=== PATIENT | male | born 1965 | race Caucasian/White ===

== ENCOUNTER 2017-01-21 15:29 | Emergency (ER) | payer SELFPAY ==
[~2017-01-21] VITALS: Ht 177.8 cm; Wt 81.8 kg
[~2017-01-21 15:29] MED LIST: BUPR75TA10 PO; Fenofibrate PO; LISI-567 PO; METF500T4 PO
[2017-01-21 15:33] VITALS: BP 127/89; PULSE 80; RESP 16; O2SAT 98
--- NOTE | 2017-01-21 16:09 | ED.REPORT ---
HPI-General Illness Date of Service Jan 21, 2017 ED Provider: Lenny is a 51-year-old male with a history of pancreatitis, diabetes, hypertension presenting with left-sided abdominal pain. Patient reports a month 's long history of left-sided abdominal pain that was severely worsened when he woke up this morning. Reports pain into his left flank and testicle. Associated with nausea and vomiting. Denies dysuria, hematuria, melena, hematochezia, hematemesis, fever, malaise. Initially seen at urgent care where labs are performed. These are considered to be reassuring however while at urgent care his pain significantly worsens and he is referred to the emergency department. Nursing Notes Stated Complaint: POSSIBLE KIDNEY STONES/ABD PAIN/SENT FROM Chief Complaint: Male Abdominal Pain Nursing Notes Reviewed: Yes Allergies: Coded Allergies: No Known Drug Allergies (Verified Allergy, Unknown, 05/24/15) Scheduled ([Fenofibrate]) 160 MG TABLET 160 MG PO DAILY Bupropion (Bupropion) 75 Mg Tablet 75 MG PO BID Lisinopril (Lisinopril) 20 Mg Tablet 10 MG PO DAILY Metformin (Metformin) 500 Mg Tablet 1,000 MG PO BID Ondansetron ODT (Ondansetron ODT) 8 Mg Tab.rapdis 8 MG PO TID Tamsulosin (Flomax) 0.4 Mg Capsule 0.4 MG PO DAILY Scheduled PRN Hydrocodone-Acetaminophen 5-325 mg (Hydrocodone-Acetaminophen 5-325 mg) 1 Each Tablet 1-2 TABLET PO QID PRN PRN For Pain General Time Seen by MD: 16:08 Chief Complaint Abdominal pain Past Medical History Smoking History Former Smoker Review of Systems Negative unless stated otherwise in history of present illness Physical Exam General: Well appearing, well developed, well nourished, no acute distress. Head: Atraumatic, normocephalic. Eyes: No scleral icterus or injection. No discharge. Vision grossly intact. ENT: Voice clear, hearing grossly intact. Respiratory: Regular rate and rhythm. Breath sounds present, clear to auscultation and equal bilaterally. No respiratory distress. No increased work of breathing, speaks in complete sentences. Cardiovascular: Regular rate and rhythm, without murmur, gallop or rub. No pedal edema. Gastrointestinal: Abdomen flat and non-tender without guarding or rebound. Bowel sounds normoactive. Skin: Warm and dry. Back: Normal to inspection, negative CVA tenderness. Neurological: Grossly nonfocal. Psychological: Alert and oriented. Speech appropriate, linear and logical. Behavior appropriate. Vital Signs Vital Signs Date Time Temp Pulse Resp B/P Pulse Ox O2 Delivery O2 Flow Rate FiO2 01/21/17 19:58 36.7 65 16 95/53 99 Room Air 01/21/17 19:50 65 16 95/53 99 Room Air 01/21/17 19:35 69 16 95/57 99 Room Air 01/21/17 15:33 36.7 80 16 127/89 98 Room Air Normal Interpretation & Diagnostics Lab Results Interpretation Test 01/21/17 18:55 Urine Color Dark yellow (YELLOW) Urine Appearance Hazy (CLEAR,HAZY) Urine pH 5.5 (5.0-8.0) Urine Specific B[place]y 1.030 (1.003-1.035) Urine Protein 30mg/dL (NEG,TRACE) Urine Glucose (UA) Negativemg/dL (NEGATIVE) Urine Ketones 80mg/dL (NEGATIVE) Urine Occult Blood Large (NEGATIVE) Urine Nitrite Negative (NEGATIVE) Urine Bilirubin Moderate (NEGATIVE) Urine Ictotest Positive (Negative) Urine Urobilinogen Normalmg/dL (NORMAL) Urine Leukocyte Esterase Negative (NEGATIVE) Urine RBC >50/hpf (0-2) Urine WBC 0-5/hpf (0-5) Urine Epithelial Cells Occasional/hpf (NONE-MOD) Urine Crystals None seen (NONE SEEN) Urine Bacteria Few/hpf (NONE-FEW) Urine Hyaline Casts None/lpf (NONE) Urine Granular Casts None seen (NONE SEEN) Urine Waxy Casts None seen (NONE SEEN) Urine Red Blood Cell Casts None seen (NONE SEEN) Urine White Blood Cell Casts None seen (NONE SEEN) Urine Mucus Present (None Seen) Urine Trichomonas None seen (NONE SEEN) Urine Yeast None (NONE SEEN) Urinalysis Comment None Urine Culture Reflexed Not indicated CBC Interpretation CBC normal (performed at urgent care) BMP / CMP Interpretation BMP/CMP normal except (potassium low at 3.2, chloride low at 92, total CO2 low at 14, and calcium high at 10.3. Not thought to be clinically significant.) Re-Eval/Medical Decision Med Decision/Clinical Course Lenny is a 51-year-old male with a history of pancreatitis presenting with left flank pain which is been present for several months but suddenly worsened today. Patient seen at urgent care, where reassuring labs are drawn. However his pain worsens and is referred to the emergency department. In the Emergency department he is treated with Toradol, Dilaudid and normal saline, has significantly improved. CT scan confirms left kidney stone, urinalysis reassuring against infection. I discussed these findings with Dr. watters and we agreed he is stable and safe to be discharged to home. We are reassured regarding diverticulitis, nephrolithiasis, appendicitis, pancreatitis. Advised regarding urology follow-up, provided emergency return precautions. Provided tamsulosin, [place], ondansetron. Patient verbalizes understanding of and consented to the plan. Patient is noted to be somewhat hypotensive after serial measurements at discharge. I discussed this with Dr. watters. He is not tachycardic, afebrile. He has no leukocytosis. His blood pressure appears to be stable. We have little concern for sepsis or hemorrhage. We believe he is stable and safe to be discharged to home, which the patient agrees to. Discharge & Departure Primary Impression: Kidney stone on left side Additional Impression: Renal colic Disposition: Home Discharge Condition All VS Reviewed: Yes Condition: Stable Patient Instructions: Kidney Stones (ED) Additional Instructions: Evaluation in the emergency department for abdominal pain includes history, physical examination, review of records from urgent care, urinalysis and CT scan , all of which suggest that you have a kidney stone on you left side. There is no indication of a kidney infection or pancreatitis. I believe you are stable and safe to be discharged. This will require follow-up with urology, and I will provide you with a referral. Please contact them tomorrow to arrange to be seen. I will send her home with a urine strainer. Please use this every time you urinate to potentially catch your kidney stone for analysis. The pain is best treated with 800 mg of ibuprofen (Advil, Motrin) every 6 hours , or 1000 mg of acetaminophen (Tylenol) every 6 hours. These drugs can be taken at the same time for more severe pain. I have written a prescription for a small amount of hydrocodone/acetaminophen 5/ 325 mg which can be SUBSTITUTED for the Tylenol to treat more severe pain. Do not take them together, and do not drink alcohol or operate a vehicle within 4 hours of taking this medication. Return the emergency department for any new or worsening symptoms including increasing pain, inability to urinate, fever. Referrals: Ivone Rivero MD EDSupervising Provider for APC: Juan Watters MD Attending Statement Attending attestation: I saw this patient in conjunction with Uziel Dozier PA-C. I was present for bloom portions of the history taking and physical examination. I agree with the workup, evaluation, treatment and disposition. Juan Watters MD copies to: Ivone Rivero MD; Wallace Bernardo DO [place], Beck O MD Jan 21, 2017 16:09 Uziel Dozier PA-C Jan 21, 2017 18:15
[2017-01-21] MEDS ORDERED: Ondansetron 2 mg/mL 2 mL Inj IVPUSH ONE (16:10)
[2017-01-21] MEDS ORDERED: HYDROmorphone 0.5 mg/0.5 mL iSecure Syringe IVPUSH PRN (16:10)
--- NOTE | 2017-01-21 17:27 | DRSVH ---
PROCEDURE: CT KUB (PNL-7475) INDICATIONS: abd pain, nausea TECHNIQUE: Noncontrast 5 mm thick sections acquired from the diaphragms to the symphysis. 5 mm thick coronal an d sagittal reformats were then performed. For radiation dose reduction, the following was used: aut omated exposure control, adjustment of mA and/or kV according to patient size. COMPARISON: [facility], CT, ABD/PELVIS W/CON (PN), 02/18/2015, 10:53. FINDINGS: Image quality: Excellent. Lung bases: Lung bases are clear. Heart size is normal. Urinary system: 4 mm obstructing proximal left ureteral calculus with left-sided hydronephrosis and u reterectasis. No further renal or ureteral calculi. Low-density right renal mass most consistent with a cyst. Bladder wall thickness is normal; no calcified bladder stones. Other solid organs: Liver and spleen are normal in size. Gallbladder is mildly enlarged and contain s high density material. Findings likely are present milk of calcium or small cholelithiasis.. Pancr eas is normal in contours. No adrenal nodules. Peritoneum and bowel: Unenhanced bowel loops demonstrate normal wall thickness and caliber. No free fluid or air. Nodes and vessels: No retroperitoneal or mesenteric adenopathy by size criteria. Aorta and inferior vena cava are normal in caliber. Abdominal wall: Small periumbilical hernia with increased density in the associated fat.. Pelvis: No free pelvic fluid. No inguinal hernias or adenopathy. Bones: No suspicious bony lesions. No vertebral body compression fractures. IMPRESSION: 1. Proximal left ureteral obstructing 4 mm calculus. 2. Prominent gallbladder containing increased density most consistent with milk of calcium or small c holelithiasis. CT findings do not support acute cholecystitis. 3. Small fat containing perineal hernia with increased density in the fat. Correlate with clinical ex am at this site. Dictated by: Loki John M.D. on 01/21/2017 at 17:15 Approved by: Loki John M.D. on 01/21/2017 at 17:20
[2017-01-21 19:16] LABS: COLOR,URINE DARK YELLOW (YELLOW)
[2017-01-21 19:19] LABS: APPEARANCE,URINE HAZY (CLEAR,HAZY); OCCULT BLOOD,URINE LARGE (NEGATIVE); PH,URINE 5.5 (5.0-8.0); UROBILINOGEN,URINE NORMAL (NORMAL)
[2017-01-21 19:28] LABS: ICTOTEST,URINE POSITIVE (Negative)
[2017-01-21 19:35] VITALS: BP 95/57; PULSE 69; RESP 16; O2SAT 99
[2017-01-21 19:50] VITALS: BP 95/53; PULSE 65; RESP 16; O2SAT 99
[2017-01-21] MEDS ORDERED: ONDA8TAB10 PO (19:51)
[2017-01-21] MEDS ORDERED: HYDR-4003 PO (19:51)
[2017-01-21] MEDS ORDERED: TAMS0.4C98 PO (19:53)
[2017-01-21 19:58] VITALS: BP 95/53; PULSE 65; RESP 16; O2SAT 99
== END 2017-01-21 19:58 | disposition home or self-care (01) ==
LOC: SED 15:29
DX: N20.0 Calculus of kidney (principal); I10 Essential (primary) hypertension; E11.9 Type 2 diabetes mellitus without complications; Z87.19 Personal history of other diseases of the digestive system; Z87.891 Personal history of nicotine dependence; Z79.84 Long term (current) use of oral hypoglycemic drugs
CPT/HCPCS: 74176; 81000; 96361; 96374; 96375; 99285; J1170; J1885; J2405

== ENCOUNTER 2017-04-25 10:04 | Observation (INO) | payer OTHER ==
[~2017-04-25] VITALS: Ht 177.8 cm; Wt 88.4 kg
[2017-04-25] VITALS (9 sets, daily range): BP systolic 103–167; BP diastolic 78–107; PULSE 68–86; RESP 14–21; O2SAT 94–98
[~2017-04-25 10:04] MED LIST changes: +HYDR-4003 PO; +ONDA8TAB10 PO; +TAMS0.4C98 PO
--- NOTE | 2017-04-25 10:26 | ED.REPORT ---
HPI-Extremity Problem Upper Date of Service Apr 25, 2017 ED Provider: Carlyle Franco DO A 51 year old male with a history of diabetes mellitus, pancreatitis and kidney stones presents to the ED with stabbing right-shoulder pain that initially began a few weeks ago but became increasingly worse this morning. The patient was evaluated at Urgent Care this morning for right arm pain that radiated to his chest and he was sent to the ED for further evaluation following a concerning presentation. He reports associated nocturnal diaphoresis and nausea. Patient has visited several times over the past few weeks and has been previously diagnosed with musculoskeletal strain and admits to a recent fall onto his left side 2 weeks ago. The pain in his arm is not exacerbated by arm movement or touch but is exacerbated by laying down. Ice and stretching has helped relieve his pain. Patient denies any recent fever, chills, abdominal pain or vomiting. Nursing Notes Stated Complaint: MUSCULOSKELETAL PAIN/SENT BY Chief Complaint: Extremity Trauma Nursing Notes Reviewed: Yes Allergies: Coded Allergies: No Known Drug Allergies (Verified Allergy, Unknown, 04/25/17) Scheduled Metformin (Glucophage) 1,000 Mg Tablet 1,000 MG PO BID General Time Seen by MD: 10:19 Chief Complaint Shoulder injury right Hx Obtained From: Patient Arrived By: Walk-in Onset Occurred: More than a week ago... Symptom Duration: Since onset Location: : Shoulder right Quality: Painful, Stabbing Severity: Current: Moderate Severity: Maximum: Moderate Associated with: Denies: Fever, Nausea, Vomiting Pertinent Negative: Pt denies other symptoms Relieved by: Extension, Ice Recent Healthcare: No recent hospitalization, Recent doctor visit Similar Sx Previous: Yes Past Medical History Past Medical History Diabetes mellitus Pancreatitis Kidney stones Past Surgical History None reported. Smoking History Former Smoker Social History Other Social History: , Local resident Ambulatory Status Independent Review of Systems Constitutional: Denies: Chills, Fever Musculoskeletal: Reports: Extremity pain (right arm pain), Joint pain (right arm pain) Skin: Reports Diaphoresis (nocturnal) Complete sys rev & neg: except as marked. Cardiovascular: Reports: Chest pain GI: Reports: Nausea, Denies: Abdominal pain, Vomiting Physical Exam Initial Vital Signs Vital Signs (First) Date Time Temp Pulse Resp B/P Pulse Ox O2 Delivery O2 Flow Rate FiO2 04/25/17 10:07 36.6 77 16 157/99 98 Room Air Initial VS: Reviewed Head / Eyes: Atraumatic, Normocephalic, PERRL Neck: Supple, Non-tender, Full range of motion Skin: Warm, Dry, No cyanosis Neurologic: Alert, Oriented, Nonfocal Psychiatric: Mood/affect normal, Behavior normal, Normal thought content General/Constitutional: Awake, Alert, No acute distress Respiratory / Chest: Atraumatic, Breath sounds NL, Breath sounds = bilat, No respiratory distress, No chest tenderness CHEST: Pain is not reproducible Cardiovascular: Heart rate NL, Regular rhythm, Heart sounds NL Hypertensive Upper Extremity / MS: Atraumatic, Neurologic intact, Vascular intact Pain is not reproducible Lower Extremity / Pelvis / MS: Atraumatic, Inspection NL, Neurologic intact, Vascular intact Interpretation & Diagnostics Lab Results Interpretation Result Diagram: 04/25/17 1045 04/25/17 1045 Test 04/25/17 10:45 White Blood Count 6.9th/mm3 (3.8-10.1) Red Blood Count 3.17mil/mm3 (4.40-5.80) Hemoglobin 9.8g/dL (13.8-17.2) Hematocrit 26.5% (41.0-50.0) Mean Corpuscular Volume 83.6fL (81-100) Mean Corpuscular Hemoglobin 30.9pg (27.0-35.0) Mean Corpuscular Hemoglobin Concent 37.0% (32.0-37.0) Red Cell Distribution Width 14.6% (12.3-15.4) Platelet Count 303bil/L (150-400) Neutrophils (%) (Auto) 63.7% (40-74) Lymphocytes (%) (Auto) 22.5% (14-46) Monocytes (%) (Auto) 10.2% (4-12) Eosinophils (%) (Auto) 2.0% (0-5) Basophils (%) (Auto) 0.4% (0-3) Sodium Level 131mEq/L (134-144) Potassium Level 4.2mEq/L (3.5-5.2) Chloride Level 94mEq/L (97-108) Carbon Dioxide Level 16mmol/L (18-29) Blood Urea Nitrogen 13mg/dL (6-24) Creatinine 0.37mg/dL (0.76-1.27) Estimat Glomerular Filtration Rate 263mL/min (>59) Glucose Level 299mg/dL (60-99) Calcium Level 7.6mg/dL (8.5-10.1) Magnesium Level 1.7mg/dL (1.6-2.6) Total Bilirubin 0.2mg/dL (0.0-1.2) Aspartate Amino Transf (AST/SGOT) 10U/L (0-50) Alanine Aminotransferase (ALT/SGPT) 8U/L (0-44) Alkaline Phosphatase 58U/L (25-150) Troponin T 0.012ug/L (0.0-0.011) Total Protein 5.2g/dL (6.4-8.4) Albumin 3.5g/dL (3.4-5.0) Ketones Small (Negative) Lab Results Interpretation: BLOOD GAS pH - 7.38 ECG Interpretation ECG Interpretation: Sinus rhythm Rate 78 bpm Left atrial enlargement Time: 10:20 Interpreted by: ED physician CT Chest Interpretation IMPRESSION: 1. Arterial vasculature of the chest and abdomen is radiographically normal. Please note, the pulmonary arteries are not sufficiently opacified for evaluation. 2. Diffuse heterogeneous thyroid. No discrete nodules. 3. Benign left adrenal adenoma. 4. No radiographic evidence of pancreatitis. Please correlate with lipase and amylase levels. Dictated by: Loki John M.D. on 04/25/2017 at 13:36 Study type: Chest CT w contrast Interpretation / Wet Read by: Interpret - Radiologist Re-Eval/Medical Decision Med Decision/Clinical Course Concern for unstable angina with an indeterminate troponin. Symptoms are not completely typical of acute coronary syndrome however given the patient's risk factors he will be admitted. Re-Evaluation/Progress #1: Time of Eval: 12:42 Re-Evaluation/Progress Note: Chest pain is still present. He is informed of his current results and the plan to admit. Re-Evaluation/Progress #2: Time of Eval: 14:05 Patient Status: Pain improved Re-Evaluation/Progress Note: Nitro treatment relieved the pt's pain. Consultation : Referral / Consult Name: AntonioAiyana DO Consulted With: Hospitalist Call Returned at: 13:16 Morgue Technician: Will see patient, Agrees with eval, Agrees with plan, Accepts admit Note: Discussed patient condition. Agress with treatment plan. Counseled Regarding: Diagnosis, Lab results, Need for admission Discharge & Departure Impression: Primary Impression: Chest pain Chest pain type: unspecified Qualified Code: R07.9 - Chest pain, unspecified Disposition: ADMITTED TO HOSPITAL Discharge Condition All VS Reviewed: Yes Condition: Improved Referrals: NOPCP (PCP) Genevieve Springer MD Scribe Attestation Portions of this note were transcribed by Rosa Cordero. I, Dr. Slava Fox, personally performed the history, physical exam and medical decision-making; I reviewed and confirmed the accuracy of the information in the transcribed note. Signed by: Rosa Cordero, 04/25/17. Carlyle Franco DO Apr 25, 2017 10:26 ROSA CORDERO Apr 25, 2017 10:29
[2017-04-25] MEDS ORDERED: Ondansetron 2 mg/mL 2 mL Inj IVPUSH ONE (10:35)
[2017-04-25 11:51] LABS: BASOPHILS % (AUTO) 0.4 % (0-3); MONOCYTES % (AUTO) 10.2 % (4-12); Mean Corpuscular Hemoglobin 30.9 pg (27.0-35.0); Mean Corpuscular Volume 83.6 fL (81-100); NEUTROPHILS % (AUTO) 63.7 % (40-74); Platelet Count 303 bil/L (150-400)
[2017-04-25 12:30] LABS: Magnesium 1.7 mg/dL (1.6-2.6); TROPONIN T 0.012 ug/L (0.0-0.011)
[2017-04-25] MEDS ORDERED: Nitroglycerin 2% 1 Gm Ointment TOPICAL SCH (13:00)
--- NOTE | 2017-04-25 13:17 | ABG ---
DateTimeAnalyzed 13:10:00 -_ pH ____7.381 - 7.320 7.420 pCO2 ___31.4__ -mmHg 41.0 51.0 pO2 ___56.6__ -mmHg 24.0 40.0 HCO3- ___18.2__ -mmol/L ABE ___-6.1__ -mmol/L FIO2 ___21.0__ -% Drawn By jh - Date/Time Notified____ 13:17:00 -_ Oxygen Device 1 _ROOM AIR - Notified By jh - Notified Whom ___okelly - B 759 -mmHg tO2 ____4.8__ -Vol% Alexey test N/A -
--- NOTE | 2017-04-25 13:46 | DRSVH ---
PROCEDURE: CT ANG CHEST/ABD W/WO CONTRAST (PNL-7501) INDICATIONS: r chest and back pain, hypertensive TECHNIQUE: Precontrast 5 mm thick sections acquired from the lung apices to the iliac crests. After the adminis tration of intravenous contrast, 3 mm thick sections again acquired from the lung apices to the iliac crests. 3-dimensional maximum intensity projection (MIP) oblique sagittal and coronal reformats wer e then acquired, and/or 3-dimensional volume rendering reformats. For radiation dose reduction, the following was used: automated exposure control. COMPARISON: [facility], CT, CT KUB, 03/12/2017, 11:02. FINDINGS: Image quality: Excellent. AORTA: The thoracic and abdominal aorta is normal. Proximal great vessels as well as 2 right sided and a sin gle left-sided renal arteries, the celiac axis, superior and inferior mesenteric arteries are patent. CHEST: Lungs and pleura: No acute airspace opacities. No pleural effusions or pneumothorax. Central and p eripheral airways are patent and normal in caliber. Mediastinum: Heart size is normal. No pericardial effusion. No mediastinal or hilar adenopathy by size criteria. Central pulmonary arteries are normal in size. Esophagus is normal in caliber. No h iatal hernias. Bones and chest wall: No axillary adenopathy by size criteria. Thyroid gland is diffusely heterogen eous with no distinct mass. No suspicious bony lesions. No vertebral body compression fractures. ABDOMEN: Vasculature: Celiac trunk and mesenteric arteries are patent. Renal arteries are also patent. Solid organs: Liver and spleen are normal in size. Gallbladder is present. Biliary system is non d ilated. Pancreas enhances normally. There is a 2.5 cm left adrenal nodule which demonstrates low den sity on precontrast images consistent with a benign adrenal adenoma. Benign right renal cyst. Both k idneys are normal in size and enhancement, without hydronephrosis. Peritoneum and bowel: No free fluid or air. Bowel loops are normal in caliber and wall thickness. Nodes and vessels: No retroperitoneal or mesenteric adenopathy by size criteria. Inferior vena cava is normal in morphology. Bones: No suspicious bony lesions. No vertebral body compression fractures. Miscellaneous: No ventral hernias. IMPRESSION: 1. Arterial vasculature of the chest and abdomen is radiographically normal. Please note, the pulmona ry arteries are not sufficiently opacified for evaluation. 2. Diffuse heterogeneous thyroid. No discrete nodules. 3. Benign left adrenal adenoma. 4. No radiographic evidence of pancreatitis. Please correlate with lipase and amylase levels. Dictated by: Loki John M.D. on 04/25/2017 at 13:36 Approved by: Loki John M.D. on 04/25/2017 at 13:44
[2017-04-25] MEDS ORDERED: METF1000 PO (13:55)
[2017-04-25] MEDS ORDERED: Alum-Mag Hydrox-Simeth 30 mL Suspension PO PRN ×2 (14:10→17:00)
[2017-04-25] MEDS ORDERED: Ondansetron 2 mg/mL 2 mL Inj IVPUSH PRN ×2 (14:10→17:00)
--- NOTE | 2017-04-25 16:22 | NUR ---
Admit Pt admitted to [facility] room 3012, report received from Dacia Denny RN. Pt arrived via stretcher, was able to ambulate to the bed, steady gait observed. Pt alert and oriented x 4, denies chest pain or discomfort, VSS, able to make needs known, admit and med req completed. Pt oriented to room, bathroom, call light, TV, and visiting hours. Will continue to monitor.
[2017-04-25] MEDS ORDERED: Polyethylene Glycol (PEG) 17 Gm Powder PO PRN (17:00)
--- NOTE | 2017-04-25 17:14 | PCM.HPMED ---
Subjective Date of Service Apr 25, 2017 Primary Provider: Admitting Physician: Aiyana Antonio DO Primary Care Physician: [facility] Attending Physician: Aiyana Antonio DO Chief Complaint: Chest pain History of Present Illness: Patient is a 51-year-old male with past medical history of hypertension, hypertriglyceridemia, hyperlipidemia diabetes, pancreatitis, depression who comes in with the complaint of chest pain. The patient states that he has been having this chest pain for the last few weeks however it is currently increased significantly in pain. The patient states that the pain starts near his right shoulder blade and wraps up into his shoulder and into his chest the patient was given sublingual nitroglycerin and this seemed to help his pain significantly. The patient states that he fell 1 month ago and hurt his left shoulder and has had chronic pain from that and this seems to be at its baseline. The patient states that 3 years ago he had chest pain as well and had a cardiac cath which was negative. The patient had an abdominal and chest CT as the patient does have diabetes and there was concern as this is atypical presentation of chest pain. No signs of aortic dissection were noted the patient does have a benign left adrenal adenoma but there were no signs of pancreatitis noted on the CT scan. Patient currently denies any shortness of breath, states that his depression is currently stable. The patient complains of some left-sided abdominal pain but states that this is all been happening over the last 3 days however currently he has no left-sided abdominal pain. The patient's glucose on admission was 299, mildly elevated troponin at 0.012, hyponatremia with sodium at 131. Patient is being admitted under observation for chest pain rule out ND. Allergies Coded Allergies: No Known Drug Allergies (Verified Allergy, Unknown, 04/25/17) H Social History Hx Alcohol Use: No Hx Substance Use: No Smoking Status: Former Smoker Exam Vital Signs Vital Sign - Last Date Time Temp Pulse Resp B/P Pulse Ox O2 Delivery O2 Flow Rate FiO2 04/25/17 15:41 36.6 86 16 160/81 96 Nasal Cannula 2.00 Lab and Diagnostics Result Diagram: 04/25/17 1045 04/25/17 1045 Assessment & Plan Home medications: Bupropion 75 mg by mouth twice a day Metformin 1000mg by mouth daily however the patient is supposed be taking thousand milligrams twice a day Lisinopril 20 mg daily Patient is no longer taking gemfibrozil Allergies: No known drug allergies PMHx: Hypertension Diabetes type II Depression Pancreatitis SHx: Umbilical hernia repair Left ganglion cyst removal, ganglion cyst removal from the neck and right hip FHx: Significant history of hyperlipidemia and hypertriglyceridemia in patient's brother, grandfather, father, sister, daughter Patient's brother was diagnosed with Alzheimer's SocHx: Occupation: Currently retired Tobacco history: Quit smoking in 1998 patient smoked for 33 years 2 packs per day Alcohol use: Patient has not had a drink in the last 7-8 years patient denies any previous alcohol addiction Drug use: Patient denies ROS: A complete review of systems was performed or attempted to be performed. Please see HPI for pertinent positives, all other systems are negatives. Physical Exam: GEN: Patient was awake, alert, responding appropriately to questions HEENT: Pupils equal round and reactive to light, extraocular eye muscles intact , Neck soft supple, trachea midline, nomocephalic/atraumatic CV: +S1/S2, regular rate and rhythm, no murmur auscultated Respiratory: CTAB, no wheezes, rales, rhonchi GI: +bowel sounds x4, soft, compressible, mild tenderness to palpation in the area of the patient's umbilical hernia EXT: no clubbing, cyanosis, edema Neuro: Cranial nerves II-XII grossly intact Psych: mood and affect were appropriate Assessment and Plan Patient is a 51-year-old male with past medical history of hypertension, hypertriglyceridemia, hyperlipidemia diabetes, pancreatitis, depression who comes in with the complaint of chest pain. Chest pain rule out ND, present on admission, active -Mildly elevated troponin and 0.012 continue to trend troponins 3 -Follow up lipid panel -Follow up triglycerides -Exercise stress test in the morning - Echo ordered -Nothing by mouth after midnight -Nitroglycerin when necessary chest pain -Morphine when necessary pain -Follow up labs in the morning Hypertension, present on admission, active -Continue lisinopril 20 mg daily -Continue to monitor Hyponatremia, present on admission, active -1 L normal saline bolus -Continue to monitor Diabetes, present on admission, active -Glucose on admission 299 -Follow up hemoglobin A1c -Continue metformin thousand milligrams twice a day as prescribed -Insulin sliding scale low-dose -Follow up labs in the morning Hyperlipidemia and hypertriglyceridemia -Follow up labs in the morning Code Status: Full code Diet: Heart healthy DVT prophylaxis: SCDs and ambulation Disposition: Due to the nature of the patient's current diagnosis anticipated stay is less than 2 midnight Time spent Greater than 45 minutes Aiyana Antonio DO Apr 25, 2017 17:13
--- NOTE | 2017-04-25 18:03 | PCM.ADCARE ---
Advance Care Planning Note Plan: Date: 04/25/2017 Diagnosis: Chest pain Diabetes Hypertension Hyperlipidemia Hypertriglyceridemia Depression Purpose of encounter: Goals of care Parties in attendance: The patient, his , Dr. Antonio Decisional capacity: Good Plan: The patient and his are aware of the current diagnosis and would like to continue to be full code. The patient understands that this means for chest compressions, intubation, pressors, and all measures involved with CPR. CODE STATUS: Full code Time spent with advanced care planning: Greater than 16 minutes Aiyana Antonio DO Apr 25, 2017 18:03
[2017-04-26] MEDS ORDERED: Glucose 40% Oral Gel 15 Gm Tube PO PRN (01:15)
[2017-04-26 02:27] VITALS: PULSE 68
--- NOTE | 2017-04-26 04:13 | NUR ---
Right shoulder pain Patient reported right shoulder pain at 6-7/10, Morphine effective. Applied heat, increased comfort. Patient reports pain is less than when admitted. Patient is NPO after midnight, aware of planned stress test and echocardiogram. Using call light appropriately, alert and oriented, cooperative with care.
[2017-04-26 04:27] VITALS: BP 135/89; PULSE 70; RESP 16; O2SAT 96
[2017-04-26 06:12] VITALS: PULSE 73
[2017-04-26 06:15] LABS: BASOPHILS % (AUTO) 0.4 % (0-3); EOSINOPHILS % (AUTO) 2.3 % (0-5); MONOCYTES % (AUTO) 13.7 % (4-12); Mean Corpuscular Volume 84.9 fL (81-100); NEUTROPHILS % (AUTO) 60.9 % (40-74); Platelet Count 363 bil/L (150-400)
[2017-04-26 07:17] LABS: TROPONIN T 0.012 ug/L (0.0-0.011)
[2017-04-26 08:52] VITALS: PULSE 75
[2017-04-26 08:55] VITALS: BP 138/93; PULSE 80; RESP 18; O2SAT 96
[2017-04-26] MEDS: Insulin LISPRO 300 Unit/3 mL Inj SUBQ SCH ×2 (09:36→12:08)
--- NOTE | 2017-04-26 09:45 | NUR ---
Off unit CVL Pt p/u by CVL staff on wc. Pt denied pain. IV-SL. On RA. Tele notified. Addendum: 04/26/17 at 1112 by SCOTT CAMARILLO RN Pt now back from stress test. Pt states to have felt nauseous while lying on the back for a 'camera'. Still feeling sick to his stomach now, asked for anti-nausea medication. Pt notes to have felt less pain in R shoulder while on treadmill. Back on tele monitoring.
--- NOTE | 2017-04-26 10:45 | DRSVH ---
[facility] [address] [place] [address] Echocardiogram Report Name: SHANICE SEGURA Date: 04/26/2017 Height: 70 in Hospital Exam Location: [facility] Weight: 19 4 lb Gender: Male BSA: 2.1 m2 : 1965 Age: 51 yrs BP: 135/89 mmHg Reason For Study: Chest Pain Ordering Physician: HOSPITALIST [facility] Performed By: Kathleen Bowers Referring Physician: Duane Guzman Interpretation Summary Left ventricular systolic function is normal without focal wall motion abnormalities with the ejection fraction visually estimated to be 65-70%. There is mild concentric left ventricular hypertrophy but probable normal left ventricular diastolic function and normal filling pressures. The right ventricle is normal in size and function. The right ventricular systolic pressure is estimated to be at least 33 mmHg assuming a right atrial pressure of 8 mm Hg. The left atrium is mildly dilated and the right atrium is borderline dilated. There is no significant valvular heart disease. The aortic root is mildly and ascending aorta are mildly enlarged, and the aortic arch is at the upper limits of normal in size. Procedure: A two-dimensional transthoracic echocardiogram with color flow and Doppler was performed. The study quality was technically adequate. There is no prior echocardiogram noted for this patient. The patient was in normal sinus rhythm during the exam. Left Ventricle: The left ventricle is normal in size. There is mild concentric left ventricular hypertrophy. Left ventricular systolic function is normal without focal wall motion abnormalities. The ejection fraction is estimated to be 65-70%. Assessment of diastolic parameters indicates normal left ventricular diastolic function and normal filling pressures. Right Ventricle: The right ventricle is normal in size and function. Atria: The left atrium is mildly dilated. The right atrium is borderline dilated. The interatrial septum is intact with no evidence for an atrial septal defect. Mitral Valve: The mitral valve leaflets appear mildly thickened, but open well. There is no mitral regurgitation. Aortic Valve: The aortic valve is trileaflet. The aortic valve is slightly calcified. The aortic valve opens well. No aortic regurgitation is present. Tricuspid Valve: The tricuspid valve is normal. There is trace tricuspid regurgitation. The right ventricular systolic pressure is estimated at least 33 mmHg assuming a right atrial pressure of 8 mm Hg. Pulmonic Valve: The pulmonic valve leaflets are thin and pliable; valve motion is normal. There is trace pulmonic regurgitation. There is no significant valvular heart disease. Great Vessels: The aortic root is mildly dilated. The ascending aorta is mildly enlarged. The aortic arch is at the upper limits of normal in size. The pulmonary artery is normal size. The IVC is dilated (diameter is greater than 2.1 cm) yet it collapses greater than 50% with a sniff. This suggests a right atrial pressure of 8 mm Hg. Pericardium/ Pleura There is no pericardial effusion. There is no pleural effusion. MMode/2D Measurements & Calculations LVIDd: 4.8 cm LVIDs: 2.9 cm LA A2 area: 20.1 cm FS: 38.7 % LA A4 area: 22.5 cm EPSS: 0.51 cm LA length (vol): 4.9 cm IVSd: 1.2 cm LA vol: 77.6 ml LVPWd: 1.1 cm LA vol index: 37.7 ml/m IVC diam: 2.4 cm RA long axis: 4.4 cm LVOT diam: 1.9 cm RA area: 17.4 cm AoV Openin.1 cm RA vol: 58.6 ml Ao root diam: 3.9 cm RA : 28.4 ml/m2 asc Aorta Diam: 3.7 cm Ao Arch Diam (Prox Trans): 3.0 cm LV guthrie. diameter/BSA (cm/m^2): 2.3 LV sys. diameter/BSA (cm/m^2): 1.4 RVD1 (basal): 4.3 cm RVD2 (mid): 3.0 cm TAPSE: 2.5 cm Doppler Measurements & Calculations Ao V2 max: 136.9 cm/sec MV E max wesly: 68.5 cm/sec Ao max P.5 mmHg MV A max wesly: 62.4 cm/sec Ao mean P.2 mmHg MV P1/2t: 68.5 msec LVOT Max Wesly: 106.9 cm/sec TEODORO(I,D): 2.4 cm sev ratio: 0.87 MV E/A: 1.1 TR max wesly: 250.4 cm/sec Med Peak E' Wesly: 7.7 cm/sec TR max P.1 mmHg E/E' med: 8.9 PA V2 max: 71.5 cm/sec Lat Peak E' Wesly: 10.2 cm/sec PA mean P.3 mmHg E/E' lat: 6.7 PA Accel Time: 0.05 sec E/e' average: 7.8 MV dec time: 0.23 sec MV P1/2t max wesly: 68.2 cm/sec MVA(P1/2t): 3.2 cm2 Ao V2 mean: 97.8 cm/sec LV V1 max P.6 mmHg Ao V2 VTI: 26.8 cm LV V1 VTI: 23.3 cm TEODORO(V,D): 2.1 cm2 PA V2 mean: 56.3 cm/sec TEODORO indexed to BSA (cm^2/m^2): 1.2 Reading Physician:10:44 AM
[2017-04-26 12:51] VITALS: BP 123/81; PULSE 81; RESP 18; O2SAT 95
--- NOTE | 2017-04-26 13:24 | DRSVH ---
PROCEDURE PERFORMED: EXERCISE STRESS ONLY MYOCARDIAL PERFUSION IMAGING WITH GATING TO ASSESS EJECTIO N FRACTION AND REGIONAL WALL MOTION. RADIOPHARMACEUTICAL: 21.8 mCi of technetium-99 tetrofosmin. INDICATIONS: The patient is a 51-year-old hypertensive diabetic male admitted with back and chest di scomfort. COMPARISON: None. EXERCISE TREADMILL TESTING: The patient was able to exercise for 7 minutes and 37 seconds on a stand ivone Daryl protocol, suggesting mildly to moderately reduced exercise capacity with an ALLEN of +22%. H e had a normal hemodynamic response achieving a maximum heart rate of 155 BPM (92% of his predicted m aximum). At rest prior to stress, he complained of right shoulder pain, which improved with exercise and had no anginal-type symptoms. His resting ECG is normal and there are no ischemic changes with stress. There were no arrhythmias. FINDINGS: 1. Raw Data: There is fairly good myocardial tracer uptake although there appears to be some attenu ation artifact along the inferolateral segment due to diaphragm and body habitus. There is no obviou s increased lung uptake and there is no obvious post-stress dilatation. 2. Quantitative Gated SPECT: Post-stress ejection fraction is estimated at 92%, likely an overestim ate of the true ejection fraction due to relatively small left ventricular volumes with an estimated end diastolic volume at 58 mL. There are no focal wall motion abnormalities identified and specifica lly the inferior and inferolateral wall have normal contractility. 3. Myocardial Perfusion Imaging: Post-stress supine images show a fairly normal myocardial perfusio n pattern, although with mildly reduced tracer activity at the base of the inferior wall, extending s lightly into the mid inferolateral wall. This defect essentially resolves on the prone images, revea ling a more normal myocardial perfusion pattern. CONCLUSION: 1. Normal myocardial perfusion study. 2. Mild proximal inferior and inferolateral defect that resolves on prone imaging, most consistent w ith diaphragmatic attenuation. There is no compelling evidence for any significant myocardial ischem ia or previous myocardial infarction. 3. Normal left ventricular systolic function with relatively small left ventricular volumes but no r egional wall motion abnormalities. 4. Mildly to moderately reduced exercise capacity without angina or ECG evidence of ischemia. Dictated by: Dixon Osei M.D. on 04/26/2017 at 11:34 Transcribed by: MIKEY on 04/26/2017 at 16:24 Approved by: Dixon Osei M.D. on 04/26/2017 at 16:30
--- NOTE | 2017-04-26 14:35 | PCM.DIMED ---
Discharge Instructions Date of Service Apr 26, 2017 Dates of Hospitalization Apr 25, 2017 at 14:13 Diet Discharge Diet: Low fat, Low Sodium, Diabetic Activity Discharge Activity: No restrictions Call your provider Call your provider for: Other (worsening pain or new symptoms) Patient Instructions Follow-up with PCP in: 1 week Giovanna Hogan MD Apr 26, 2017 14:35
[2017-04-26] MEDS ORDERED: GEMF600T3 PO (14:38)
[2017-04-26] MEDS ORDERED: OXYC-530 PO (14:38)
[2017-04-26] MEDS ORDERED: METF1000 PO (14:39)
--- NOTE | 2017-04-26 14:49 | PCM.DC.MED ---
Discharge Summary Date of Service Apr 26, 2017 Dates of Hospitalization Date of Hospital Admission Apr 25, 2017 at 14:13 Date of Discharge: Apr 26, 2017 Providers: Admitting Physician: Aiyana Antonio DO Primary Care Physician: Ritu Hernandez-Dafne Weems Attending Physician: Sarabjit Collins MD Diagnosis at Time of Discharge Diagnosis at Time of Discharge Noncardiac chest pain, seems musculoskeletal Hyper lipidemia Diabetes mellitus type 2 Brief History Patient is a 51-year-old male with past medical history of hypertension, hypertriglyceridemia, hyperlipidemia diabetes, pancreatitis, depression who comes in with the complaint of chest pain. The patient states that he has been having this chest pain for the last few weeks however it is currently increased significantly in pain. The patient states that the pain starts near his right shoulder blade and wraps up into his shoulder and into his chest the patient was given sublingual nitroglycerin and this seemed to help his pain significantly. The patient states that he fell 1 month ago and hurt his left shoulder and has had chronic pain from that and this seems to be at its baseline. The patient states that 3 years ago he had chest pain as well and had a cardiac cath which was negative. The patient had an abdominal and chest CT as the patient does have diabetes and there was concern as this is atypical presentation of chest pain. No signs of aortic dissection were noted the patient does have a benign left adrenal adenoma but there were no signs of pancreatitis noted on the CT scan. Patient currently denies any shortness of breath, states that his depression is currently stable. The patient complains of some left-sided abdominal pain but states that this is all been happening over the last 3 days however currently he has no left-sided abdominal pain. The patient's glucose on admission was 299, mildly elevated troponin at 0.012, hyponatremia with sodium at 131. Patient is being admitted under observation for chest pain rule out IN. Hospital Course Chest pain IN ruled out, most likely musculoskeletal -borderline troponin of 0.012 was normal when repeated -Exercise stress echo prior to discharge did not show evidence of ischemia -pain is actually near the right scapula and seems to be chest wall pain -denies deeper CP, no exacerbation with deep breath, no SOB -does not feel like his past pancreatitis -continue home exercises, massage, ice (or could try heat instead), also rx oxycodone -sees PCP May 19 Mild Hyponatremia -1 L normal saline bolus and some improved (now 133 with 134 the bottom of normal) Diabetes, present on admission, active -Glucose on admission 299 -Follow up hemoglobin A1c -Continue metformin thousand milligrams twice a day as prescribed (he's been taking less frequently at home to "spread them out" until establishes with PCP on May 19) -Insulin sliding scale low-dose Hyperlipidemia and hypertriglyceridemia -cholesterol 1782 and triglycerides 16,141 -Has been on gemfibrozil in the past but none for past year (no doc and no insurance), will give him a month's supply while awaiting his May 19 appointment to establish care Exam Vital Signs (Last) Date Time Temp Pulse Resp B/P Pulse Ox O2 Delivery O2 Flow Rate FiO2 04/26/17 12:51 36.6 81 18 123/81 95 Room Air 04/26/17 04:27 2.00 Test 04/25/17 10:45 04/25/17 20:19 04/26/17 05:36 Magnesium Level 1.7mg/dL (1.6-2.6) Ketones Small (Negative) Hold Scott Top Tube Received (Received) White Blood Count 7.3th/mm3 (3.8-10.1) Red Blood Count 3.77mil/mm3 (4.40-5.80) Hemoglobin 11.7g/dL (13.8-17.2) Hematocrit 32.0% (41.0-50.0) Mean Corpuscular Volume 84.9fL (81-100) Mean Corpuscular Hemoglobin 31.0pg (27.0-35.0) Mean Corpuscular Hemoglobin Concent 36.6% (32.0-37.0) Red Cell Distribution Width 14.5% (12.3-15.4) Platelet Count 363bil/L (150-400) Neutrophils (%) (Auto) 60.9% (40-74) Lymphocytes (%) (Auto) 21.7% (14-46) Monocytes (%) (Auto) 13.7% (4-12) Eosinophils (%) (Auto) 2.3% (0-5) Basophils (%) (Auto) 0.4% (0-3) Sodium Level 133mEq/L (134-144) Potassium Level 4.3mEq/L (3.5-5.2) Chloride Level 96mEq/L (97-108) Carbon Dioxide Level 18mmol/L (18-29) Blood Urea Nitrogen 16mg/dL (6-24) Creatinine 0.36mg/dL (0.76-1.27) Estimat Glomerular Filtration Rate 271mL/min (>59) Glucose Level 289mg/dL (60-99) Calcium Level 8.3mg/dL (8.5-10.1) Total Bilirubin 0.2mg/dL (0.0-1.2) Aspartate Amino Transf (AST/SGOT) 6U/L (0-50) Alanine Aminotransferase (ALT/SGPT) 6U/L (0-44) Alkaline Phosphatase 53U/L (25-150) Troponin T 0.012ug/L (0.0-0.011) Total Protein 4.8g/dL (6.4-8.4) Albumin 3.0g/dL (3.4-5.0) Triglycerides Level 80995nj/dL (0-149) Cholesterol Level 1782mg/dL (100-199) LDL Cholesterol, Calculated mg/dL (0-99) VLDL Cholesterol mg/dL HDL Cholesterol 62mg/dL (>39) Cholesterol/HDL Ratio 28.74 (0.0-4.4) Discharge Medications Discharge Medications Gemfibrozil (Gemfibrozil) 600 Mg Tablet 600 MG PO BID Prescribed by: SARABJIT COLLINS MD Metformin (Glucophage) 1,000 Mg Tablet 1,000 MG PO BID Prescribed by: SARABJIT COLLINS MD As needed oxyCODONE (oxyCODONE) 5 Mg Tablet 10 MG PO QID PRN PRN For Pain Prescribed by: SARABJIT COLLINS MD Followup Plan Discharge Diet: Low fat, Low Sodium, Diabetic Discharge Activity: No restrictions Follow-up with PCP in: 1 week Sarabjit Collins MD Apr 26, 2017 14:49
--- NOTE | 2017-04-26 15:47 | NUR ---
Social Work- Initial Assessment/Discharge/Multidisciplinary Rounds Data: See attached CM assessment for additional information. Pt is a 51 year old male admitted [facility] for chest pain per H&P. Pt's insurance is [employer]. Pt PCP is Monty Sykes at [place]. Pt's readmit risk score is 1/8, low risk. Pt's NOK is Nelia Cantu, . SW met with pt at bedside to complete assessment, SW role explained. Pt alert and oriented x3. Pt resides in [place] with his where he is independent at baseline with ADLs and self-care. Pt drives. Pt has no history of HH or SNF. Pt has no LTC or VA benefits. Pt has no DPOA on file, declined information. No SW orders. No concerns related to pt's capacity for self-care. Pt to discharge home with to transport via POV. No discharge needs identified. Assessment: Pt who is independent at baseline. Plan: Pt to d/c home with to transport via POV. No discharge needs identified. TAYLOR Cannon Addendum: 04/26/17 at 1552 by STEVAN MOREAU SS Amended: Links added.
== END 2017-04-26 17:19 | disposition home or self-care (01) ==
LOC: SED 10:04 → INTOOBSV 14:13 → MPC 14:13
PROVIDERS: ADMIT Neuromusculoskeletal Medicine & OMM; ATTEND Internal Medicine
DX: R07.89 Other chest pain (principal); I10 Essential (primary) hypertension; E78.1 Pure hyperglyceridemia; E78.5 Hyperlipidemia, unspecified; E11.9 Type 2 diabetes mellitus without complications; K86.1 Other chronic pancreatitis; F32.9 Major depressive disorder, single episode, unspecified; E87.1 Hypo-osmolality and hyponatremia; Z87.891 Personal history of nicotine dependence; Z79.84 Long term (current) use of oral hypoglycemic drugs; Z79.899 Other long term (current) drug therapy
CPT/HCPCS: 36415; 71275; 74175; 78451; 80053; 80061; 82009; 82375; 82803; 83036; 83735; 84484; 85025; 93005; 93017; 96374; 96375; 96376; 99285; A9502; C8929; G0378; J1815; J2270; J2405; Q9967